=== PATIENT | male | born 1960 | race Caucasian/White ===

== ENCOUNTER 2019-02-19 12:02 | Inpatient (IN) ==
[2019-02-19] MEDS ORDERED: ONDANSETRON 4 MG/2 ML VIAL IV ONE (12:56)
[2019-02-19] MEDS ORDERED: SODIUM CHLORIDE 0.9% 1,000 ML IV SCH (13:00)
[2019-02-19] MEDS ORDERED: LACTULOSE 20 GM/30 ML UDCUP PO PRN (13:01)
[2019-02-19] MEDS ORDERED: guaiFENesin/DM ER 600-30 MG TABLET PO PRN (13:01)
[2019-02-19] MEDS ORDERED: BISACODYL 5 MG TABLET PO PRN (13:01)
[2019-02-19] MEDS ORDERED: ACETAMINOPHEN 325 MG TABLET PO PRN (13:01)
[2019-02-19] MEDS: PANTOPRAZOLE 40 MG TABLET PO SCH (13:39)
[2019-02-19] MEDS: METHOCARBAMOL 750 MG TABLET PO PRN ×2 (13:39→19:57)
[2019-02-19] MEDS: MULTIVITAMIN (CENTRUM) TABLET PO SCH (13:39)
[2019-02-19 13:46] LABS: Basophils # 0.1 10*3/uL (0.0-0.2); Eosinophils % 0.3 % (0.00-10.9); Hematocrit 30.8 VOL% (42.0-52.0); Immature Granulocytes % 0.6 %; Immature Granulocytes Absolute 0.05 #; Lymphocytes # 1.1 10*3/uL (1.4-4.0); Mean Corpuscular HGB Conc 32.5 GM/DL (32-36); Mean Platelet Volume 9.8 FL (9.6-12.0); Monocytes % 15.1 % (1.7-12.7); Platelet Count 275 T/CUMM (130-400); Red Blood Count 3.58 MC/CUMM (3.8-5.5); Red Cell Distribution Width 23.6 % (9.3-17.3); White Blood Count 8.9 T/CUMM (4-12)
[2019-02-19 13:54] LABS: INR 0.9; PT Patient Result 10.2 SECS (9.6-12.2); Partial Thromboplastin Time 25.2 SECS (20.8-36.0)
[2019-02-19] MEDS ORDERED: THIAMINE INJ 100 MG, FOLIC ACID INJ 1 MG, MULTIVITAMIN INJ 10 ML in SODIUM CHLORIDE 0.9... IV ONE (14:00)
[2019-02-19 14:08] LABS: Albumin 3.4 G/DL (3.4-5.0); Bilirubin,Total 0.6 MG/DL (0.2-1.0); Calcium 8.1 MG/DL (8.5-10.1); Osmolality,Calculated 262.4 MOS/KG (273-304); Risk Ratio 1.83; Total Protein 7.8 G/DL (6.4-8.3); VLDL CHOLESTEROL 11.2 MG/DL
[2019-02-19] MEDS ORDERED: MAGNESIUM SULF RIDER 2 GM in PREMIX 1 EACH IV PRN (14:14)
[2019-02-19 14:15] LABS: Folate 13.6 NG/ML (5.4-24.0); Thyroid Stimulating Hormone 0.926 uIU/ml (0.358-3.74)
[2019-02-19] MEDS ORDERED: INFLUENZA VIRUS VACCINE 0.5 ML SYRINGE IM ONE (15:01)
[2019-02-19] MEDS: chlordiazePOXIDE 25 MG CAPSULE PO PRN ×2 (15:15→20:36)
[2019-02-19] MEDS: PROMETHAZINE 25 MG/1 ML VIAL IM PRN (15:15)
[2019-02-19] MEDS: POTASSIUM CHLORIDE RIDER 10 MEQ in PREMIX 1 EACH IV PRN ×2 (15:16→17:13)
[2019-02-19] MEDS: NICOTINE 21 MG/24 HR PATCH TRANSDERM PRN (16:50)
[2019-02-19] MEDS: MAGNESIUM SULF RIDER 4 GM in PREMIX 1 EACH IV PRN (17:13)
[2019-02-19] MEDS: cloNIDine 0.1 MG TABLET PO PRN (18:24)
[2019-02-19 18:59] LABS: Apearance,Urine Slightly Hazy (Clear); Bilirubin,Urine Negative (Negative); Blood, Urine Negative (Negative); Glucose,Urine (UA) Negative (Negative); Hyaline Casts,Urine 27 /LPF (0-3); Ketones,Urine 5 mg/dL (Negative); Mucus,Urine Occasional /LPF (Occasional); Nitrite,Urine Negative (Negative); Protein,Urine 30 MG/DL; RBC,Urine 3 /HPF (0-4); Squamous Epithelial Cell,Urine Occasional /HPF (0-10); Urine Color Amber (Yellow); Urine Specific Gravity 1.018 (1.001-1.035); WBC,Urine 49 /HPF (0-6)
[2019-02-19] MEDS ORDERED: MAGNESIUM SULF RIDER 2 GM in PREMIX 1 EACH IV ONE (19:02)
[2019-02-19] MEDS ORDERED: POTASSIUM CHLORIDE 20 MEQ TABLET PO ONE (19:02)
[2019-02-19 19:03] LABS: Barbiturates Screen,Urine Negative (Negative); Benzodiazepines Screen,Urine Negative (Negative); Cannabinoid Screen,Urine Positive (Negative); Opiate Screen,Urine Negative (Negative); Phencyclidine Screen,Urine Negative (Negative)
[2019-02-19] MEDS: ONDANSETRON 4 MG/2 ML VIAL IV PRN (19:57)
[2019-02-19] MEDS: GABAPENTIN 300 MG CAPSULE PO SCH (20:36)
[2019-02-19] MEDS: DOCUSATE SODIUM 100 MG CAPSULE PO SCH (20:36)
[2019-02-19] MEDS: ENOXAPARIN 40 MG/0.4 ML SYRINGE SUBCUT SCH (20:36)
[2019-02-20] MEDS: ENOXAPARIN 40 MG/0.4 ML SYRINGE SUBCUT SCH ×2 (00:19→22:06)
[2019-02-20] MEDS: chlordiazePOXIDE 25 MG CAPSULE PO PRN ×3 (00:26→20:53)
[2019-02-20] MEDS: ONDANSETRON 4 MG/2 ML VIAL IV PRN ×2 (00:29→20:56)
[2019-02-20] MEDS ORDERED: HydrOXYzine PAMOATE 25 MG CAPSULE PO ONE (02:40)
[2019-02-20] MEDS: METHOCARBAMOL 750 MG TABLET PO PRN ×3 (04:03→20:53)
[2019-02-20 05:50] LABS: Basophils % 0.6 % (0.0-0.8); Eosinophils # 0.1 10*3/uL (0.0-0.87); Eosinophils % 2.1 % (0.00-10.9); Hematocrit 25.5 VOL% (42.0-52.0); Hemoglobin 8.2 GM/DL (14.0-18.0); Immature Granulocytes % 0.4 %; Immature Granulocytes Absolute 0.02 #; Lymphocytes % 20.8 % (21.2-54.2); Mean Corpuscular HGB Conc 32.2 GM/DL (32-36); Mean Corpuscular Volume 87.9 FL (87-102); Mean Platelet Volume 10.3 FL (9.6-12.0); Monocytes % 10.9 % (1.7-12.7); Neutrophils % 65.2 % (38.7-73.9); Platelet Count 212 T/CUMM (130-400); Red Cell Distribution Width 23.6 % (9.3-17.3); White Blood Count 4.9 T/CUMM (4-12)
[2019-02-20 06:08] LABS: Calcium 7.1 MG/DL (8.5-10.1); Osmolality,Calculated 274.4 MOS/KG (273-304)
[2019-02-20 06:16] LABS: Hypochromasia 2+; Platelet Estimate Normal; Target Cells 1+
[2019-02-20] MEDS: FOLIC ACID 1 MG TABLET PO SCH (08:24)
[2019-02-20] MEDS: PANTOPRAZOLE 40 MG TABLET PO SCH (08:24)
[2019-02-20] MEDS: CLOPIDOGREL 75 MG TABLET PO SCH (08:24)
[2019-02-20] MEDS: DULoxetine 30 MG CAPSULE PO SCH (08:24)
[2019-02-20] MEDS: TAMSULOSIN 0.4 MG CAPSULE PO SCH (08:24)
[2019-02-20] MEDS: MULTIVITAMIN (CENTRUM) TABLET PO SCH (08:24)
[2019-02-20] MEDS: POTASSIUM CHLORIDE 20 MEQ TABLET PO PRN ×2 (08:24→10:26)
[2019-02-20] MEDS: GABAPENTIN 300 MG CAPSULE PO SCH ×2 (08:25→20:52)
[2019-02-20] MEDS: ASPIRIN CHEW 81 MG TABLET PO SCH (08:26)
[2019-02-20] MEDS: DOCUSATE SODIUM 100 MG CAPSULE PO SCH ×2 (08:27→22:06)
[2019-02-20] MEDS ORDERED: amLODIPine 10 MG TABLET PO SCH (09:00)
[2019-02-20] MEDS: amLODIPine 5 MG TABLET PO SCH (10:07)
[2019-02-20] MEDS: PROMETHAZINE 25 MG/1 ML VIAL IM PRN (10:19)
[2019-02-20] MEDS: DEXTROSE 5% NACL 0.9% 1,000 ML IV SCH (11:42)
[2019-02-20] MEDS: cefTRIAXone 1,000 MG in SYRINGE 1 EACH IV SCH (16:13)
[2019-02-21] MEDS: HydrOXYzine PAMOATE 25 MG CAPSULE PO PRN ×3 (00:10→21:59)
[2019-02-21] MEDS: DEXTROSE 5% NACL 0.9% 1,000 ML IV SCH ×2 (01:40→20:01)
[2019-02-21] MEDS: METHOCARBAMOL 750 MG TABLET PO PRN (03:18)
[2019-02-21] MEDS: chlordiazePOXIDE 25 MG CAPSULE PO PRN ×3 (03:18→14:18)
[2019-02-21 05:24] LABS: Basophils % 0.7 % (0.0-0.8); Eosinophils # 0.1 10*3/uL (0.0-0.87); Eosinophils % 2.2 % (0.00-10.9); Hematocrit 24.1 VOL% (42.0-52.0); Hemoglobin 7.7 GM/DL (14.0-18.0); Immature Granulocytes % 0.5 %; Immature Granulocytes Absolute 0.03 #; Lymphocytes # 1.5 10*3/uL (1.4-4.0); Lymphocytes % 25.5 % (21.2-54.2); Mean Corpuscular Volume 88.9 FL (87-102); Mean Platelet Volume 11.3 FL (9.6-12.0); Monocytes % 11.7 % (1.7-12.7); Neutrophils % 59.4 % (38.7-73.9); Platelet Count 222 T/CUMM (130-400); Red Blood Count 2.71 MC/CUMM (3.8-5.5); Red Cell Distribution Width 23.2 % (9.3-17.3)
[2019-02-21 05:45] LABS: Calcium 6.9 MG/DL (8.5-10.1); Osmolality,Calculated 274.4 MOS/KG (273-304)
[2019-02-21 06:09] LABS: Anisocytosis 1+; Hypochromasia 1+; Platelet Estimate Adequate; Target Cells 1+
[2019-02-21] MEDS: NICOTINE 21 MG/24 HR PATCH TRANSDERM PRN (06:20)
[2019-02-21] MEDS ORDERED: SODIUM CHLORIDE 0.9% 1,000 ML IV PRN ×2 (07:37→10:24)
[2019-02-21 08:02] LABS: % Iron Saturation 7.5 % (18-50); Ferritin 17.6 ng/ml (26-388)
[2019-02-21] MEDS: DULoxetine 30 MG CAPSULE PO SCH (08:45)
[2019-02-21] MEDS: amLODIPine 5 MG TABLET PO SCH (08:46)
[2019-02-21] MEDS: SIMVASTATIN 10 MG TABLET PO SCH (08:46)
[2019-02-21] MEDS: POTASSIUM CHLORIDE 20 MEQ TABLET PO PRN (08:46)
[2019-02-21] MEDS: TAMSULOSIN 0.4 MG CAPSULE PO SCH (08:46)
[2019-02-21] MEDS: CLOPIDOGREL 75 MG TABLET PO SCH (08:46)
[2019-02-21] MEDS: FOLIC ACID 1 MG TABLET PO SCH (08:46)
[2019-02-21] MEDS: MULTIVITAMIN (CENTRUM) TABLET PO SCH (08:46)
[2019-02-21] MEDS: ASPIRIN CHEW 81 MG TABLET PO SCH (08:46)
[2019-02-21] MEDS: GABAPENTIN 300 MG CAPSULE PO SCH ×2 (08:46→21:59)
[2019-02-21] MEDS: DOCUSATE SODIUM 100 MG CAPSULE PO SCH ×2 (08:47→21:59)
[2019-02-21] MEDS: PANTOPRAZOLE 40 MG TABLET PO SCH (08:48)
[2019-02-21] MEDS: MAGNESIUM SULF RIDER 4 GM in PREMIX 1 EACH IV PRN (08:50)
[2019-02-21] MEDS: ONDANSETRON 4 MG/2 ML VIAL IV PRN (14:28)
[2019-02-21] MEDS: LORazepam 2 MG/1 ML VIAL IV PRN ×2 (15:55→21:59)
[2019-02-21] MEDS: cefTRIAXone 1,000 MG in SYRINGE 1 EACH IV SCH (15:57)
[2019-02-22] MEDS: DEXTROSE 5% NACL 0.9% 1,000 ML IV SCH (04:49)
[2019-02-22 04:53] LABS: Basophils % 0.5 % (0.0-0.8); Eosinophils # 0.1 10*3/uL (0.0-0.87); Eosinophils % 1.9 % (0.00-10.9); Hematocrit 24.6 VOL% (42.0-52.0); Hemoglobin 7.8 GM/DL (14.0-18.0); Immature Granulocytes % 0.5 %; Immature Granulocytes Absolute 0.03 #; Lymphocytes # 1.3 10*3/uL (1.4-4.0); Lymphocytes % 20.9 % (21.2-54.2); Mean Corpuscular HGB Conc 31.7 GM/DL (32-36); Mean Corpuscular Volume 89.8 FL (87-102); Mean Platelet Volume 10.9 FL (9.6-12.0); Monocytes % 9.8 % (1.7-12.7); Neutrophils % 66.4 % (38.7-73.9); Platelet Count 241 T/CUMM (130-400); Red Blood Count 2.74 MC/CUMM (3.8-5.5); Red Cell Distribution Width 23.2 % (9.3-17.3); White Blood Count 6.3 T/CUMM (4-12)
[2019-02-22 05:25] LABS: Calcium 7.7 MG/DL (8.5-10.1); Osmolality,Calculated 281.8 MOS/KG (273-304)
[2019-02-22 05:27] LABS: Anisocytosis 1+; Hypochromasia 1+
[2019-02-22 05:28] LABS: Platelet Estimate Adequate; Target Cells 1+
[2019-02-22] MEDS: DULoxetine 30 MG CAPSULE PO SCH (08:12)
[2019-02-22] MEDS: GABAPENTIN 300 MG CAPSULE PO SCH ×2 (08:12→21:15)
[2019-02-22] MEDS: TAMSULOSIN 0.4 MG CAPSULE PO SCH (08:12)
[2019-02-22] MEDS: chlordiazePOXIDE 25 MG CAPSULE PO PRN ×3 (08:12→21:16)
[2019-02-22] MEDS: CLOPIDOGREL 75 MG TABLET PO SCH (08:12)
[2019-02-22] MEDS: MULTIVITAMIN (CENTRUM) TABLET PO SCH (08:12)
[2019-02-22] MEDS: PANTOPRAZOLE 40 MG TABLET PO SCH (08:13)
[2019-02-22] MEDS: SIMVASTATIN 10 MG TABLET PO SCH (08:13)
[2019-02-22] MEDS: ASPIRIN CHEW 81 MG TABLET PO SCH (08:13)
[2019-02-22] MEDS: POTASSIUM CHLORIDE 20 MEQ TABLET PO PRN ×3 (08:13→21:16)
[2019-02-22] MEDS: HydrOXYzine PAMOATE 25 MG CAPSULE PO PRN ×3 (08:13→21:15)
[2019-02-22] MEDS: amLODIPine 5 MG TABLET PO SCH (08:13)
[2019-02-22] MEDS: FOLIC ACID 1 MG TABLET PO SCH (08:13)
[2019-02-22] MEDS: METHOCARBAMOL 750 MG TABLET PO PRN ×2 (08:13→15:27)
[2019-02-22] MEDS: NICOTINE 21 MG/24 HR PATCH TRANSDERM PRN (08:15)
[2019-02-22] MEDS: DOCUSATE SODIUM 100 MG CAPSULE PO SCH ×2 (08:18→21:15)
[2019-02-22] MEDS: ONDANSETRON 4 MG/2 ML VIAL IV PRN ×2 (08:18→15:28)
[2019-02-22] MEDS: THIAMINE 100 MG TABLET PO SCH (15:27)
[2019-02-22] MEDS: PROMETHAZINE 25 MG/1 ML VIAL IM PRN (17:42)
[2019-02-22] MEDS: LORazepam 2 MG/1 ML VIAL IV PRN (22:37)
[2019-02-23] MEDS: HydrOXYzine PAMOATE 25 MG CAPSULE PO PRN ×3 (01:56→15:23)
[2019-02-23] MEDS: METHOCARBAMOL 750 MG TABLET PO PRN ×2 (01:56→20:41)
[2019-02-23] MEDS: POTASSIUM CHLORIDE 20 MEQ TABLET PO PRN (01:56)
[2019-02-23] MEDS: cloNIDine 0.1 MG TABLET PO PRN ×2 (02:05→22:17)
[2019-02-23] MEDS: ONDANSETRON 4 MG/2 ML VIAL IV PRN (02:16)
[2019-02-23] MEDS: DEXTROSE 5% NACL 0.9% 1,000 ML IV SCH ×3 (02:56→20:43)
[2019-02-23 06:39] LABS: Basophils # 0.1 10*3/uL (0.0-0.2); Basophils % 0.7 % (0.0-0.8); Eosinophils # 0.1 10*3/uL (0.0-0.87); Eosinophils % 1.5 % (0.00-10.9); Hematocrit 34.1 VOL% (42.0-52.0); Hemoglobin 11.2 GM/DL (14.0-18.0); Immature Granulocytes % 0.5 %; Immature Granulocytes Absolute 0.04 #; Lymphocytes # 1.4 10*3/uL (1.4-4.0); Lymphocytes % 17.7 % (21.2-54.2); Mean Corpuscular HGB Conc 32.8 GM/DL (32-36); Mean Corpuscular Volume 89.3 FL (87-102); Mean Platelet Volume 10.3 FL (9.6-12.0); Monocytes % 10.5 % (1.7-12.7); Neutrophils % 69.1 % (38.7-73.9); Platelet Count 274 T/CUMM (130-400); Red Blood Count 3.82 MC/CUMM (3.8-5.5); Red Cell Distribution Width 20.6 % (9.3-17.3); White Blood Count 8.1 T/CUMM (4-12)
[2019-02-23 06:56] LABS: Calcium 7.8 MG/DL (8.5-10.1); Osmolality,Calculated 282.8 MOS/KG (273-304)
[2019-02-23] MEDS ORDERED: MAGNESIUM SULF RIDER 2 GM in PREMIX 1 EACH IV ONE (08:39)
[2019-02-23] MEDS: CLOPIDOGREL 75 MG TABLET PO SCH (09:09)
[2019-02-23] MEDS: THIAMINE 100 MG TABLET PO SCH (09:09)
[2019-02-23] MEDS: amLODIPine 5 MG TABLET PO SCH (09:09)
[2019-02-23] MEDS: SIMVASTATIN 10 MG TABLET PO SCH (09:09)
[2019-02-23] MEDS: ASPIRIN CHEW 81 MG TABLET PO SCH (09:09)
[2019-02-23] MEDS: PANTOPRAZOLE 40 MG TABLET PO SCH (09:09)
[2019-02-23] MEDS: DOCUSATE SODIUM 100 MG CAPSULE PO SCH ×2 (09:09→20:41)
[2019-02-23] MEDS: FOLIC ACID 1 MG TABLET PO SCH (09:09)
[2019-02-23] MEDS: GABAPENTIN 300 MG CAPSULE PO SCH ×2 (09:09→20:41)
[2019-02-23] MEDS: MULTIVITAMIN (CENTRUM) TABLET PO SCH (09:09)
[2019-02-23] MEDS: DULoxetine 30 MG CAPSULE PO SCH (09:09)
[2019-02-23] MEDS: chlordiazePOXIDE 25 MG CAPSULE PO PRN ×2 (09:17→19:10)
[2019-02-23] MEDS: TAMSULOSIN 0.4 MG CAPSULE PO SCH (09:17)
[2019-02-23] MEDS: LORazepam 2 MG/1 ML VIAL IV PRN (23:34)
[2019-02-24] MEDS: chlordiazePOXIDE 25 MG CAPSULE PO PRN (04:49)
[2019-02-24] MEDS: cloNIDine 0.1 MG TABLET PO PRN (04:59)
[2019-02-24 05:29] LABS: Basophils # 0.1 10*3/uL (0.0-0.2); Basophils % 0.7 % (0.0-0.8); Eosinophils # 0.1 10*3/uL (0.0-0.87); Eosinophils % 1.5 % (0.00-10.9); Hematocrit 31.3 VOL% (42.0-52.0); Hemoglobin 10.4 GM/DL (14.0-18.0); Immature Granulocytes % 0.4 %; Immature Granulocytes Absolute 0.03 #; Lymphocytes # 1.3 10*3/uL (1.4-4.0); Lymphocytes % 16.8 % (21.2-54.2); Mean Corpuscular HGB Conc 33.2 GM/DL (32-36); Mean Corpuscular Volume 86.9 FL (87-102); Mean Platelet Volume 10.8 FL (9.6-12.0); Monocytes % 11.7 % (1.7-12.7); Neutrophils % 68.9 % (38.7-73.9); Platelet Count 288 T/CUMM (130-400); Red Cell Distribution Width 20.1 % (9.3-17.3); White Blood Count 7.4 T/CUMM (4-12)
[2019-02-24 05:52] LABS: Calcium 8.4 MG/DL (8.5-10.1); Osmolality,Calculated 282.8 MOS/KG (273-304)
[2019-02-24 07:41] VITALS: BP 162/99
[2019-02-24] MEDS: SIMVASTATIN 10 MG TABLET PO SCH (09:13)
[2019-02-24] MEDS: GABAPENTIN 300 MG CAPSULE PO SCH (09:13)
[2019-02-24] MEDS: DULoxetine 30 MG CAPSULE PO SCH (09:13)
[2019-02-24] MEDS: TAMSULOSIN 0.4 MG CAPSULE PO SCH (09:13)
[2019-02-24] MEDS: MULTIVITAMIN (CENTRUM) TABLET PO SCH (09:13)
[2019-02-24] MEDS: PANTOPRAZOLE 40 MG TABLET PO SCH (09:13)
[2019-02-24] MEDS: ASPIRIN CHEW 81 MG TABLET PO SCH (09:13)
[2019-02-24] MEDS: CLOPIDOGREL 75 MG TABLET PO SCH (09:13)
[2019-02-24] MEDS: amLODIPine 5 MG TABLET PO SCH (09:13)
[2019-02-24] MEDS: THIAMINE 100 MG TABLET PO SCH (09:13)
[2019-02-24] MEDS: FOLIC ACID 1 MG TABLET PO SCH (09:13)
[2019-02-24] MEDS: DOCUSATE SODIUM 100 MG CAPSULE PO SCH (09:13)
[2019-02-24] MEDS: POTASSIUM CHLORIDE 20 MEQ TABLET PO PRN (10:20)
== END 2019-02-24 14:00 | disposition home or self-care (01) | DRG 772 ==
LOC: N.4E 12:48
PROVIDERS: ADMIT Internal Medicine; ATTEND Internal Medicine

== ENCOUNTER 2019-08-15 13:51 | Inpatient (IN) ==
[2019-08-15] MEDS ORDERED: THIAMINE INJ 100 MG, FOLIC ACID INJ 1 MG, MULTIVITAMIN INJ 10 ML in SODIUM CHLORIDE 0.9... IV ONE (14:30)
[2019-08-15] MEDS ORDERED: DICYCLOMINE 10 MG CAPSULE PO PRN (14:30)
[2019-08-15] MEDS ORDERED: chlordiazePOXIDE 25 MG CAPSULE PO SCH (14:30)
[2019-08-15] MEDS ORDERED: ACETAMINOPHEN 325 MG TABLET PO PRN (14:33)
[2019-08-15] MEDS ORDERED: traZODone 50 MG TABLET PO PRN (14:33)
[2019-08-15] MEDS ORDERED: hydrALAZINE 20 MG/1 ML VIAL IV PRN (14:33)
[2019-08-15] MEDS ORDERED: POLYVINYL ALCOHOL 1.4% OPH SOLN 15 ML BOTTLE BOTH EYES PRN (14:40)
[2019-08-15 14:58] LABS: Basophils # 0.1 10*3/uL (0.0-0.2); Basophils % 0.7 % (0.0-0.8); Eosinophils # 0.1 10*3/uL (0.0-0.87); Eosinophils % 0.5 % (0.00-10.9); Hematocrit 32.5 VOL% (42.0-52.0); Hemoglobin 11.1 GM/DL (14.0-18.0); Immature Granulocytes % 0.5 %; Immature Granulocytes Absolute 0.05 #; Lymphocytes # 1.2 10*3/uL (1.4-4.0); Lymphocytes % 13.6 % (21.2-54.2); Mean Corpuscular HGB Conc 34.2 GM/DL (32-36); Mean Corpuscular Volume 86.7 FL (87-102); Mean Platelet Volume 10.8 FL (9.6-12.0); Monocytes % 7.9 % (1.7-12.7); Neutrophils % 76.8 % (38.7-73.9); Platelet Count 186 T/CUMM (130-400); Red Blood Count 3.75 MC/CUMM (3.8-5.5); Red Cell Distribution Width 18.1 % (9.3-17.3); White Blood Count 9.1 T/CUMM (4-12)
[2019-08-15 15:10] LABS: INR 0.9; PT Patient Result 9.4 SECS (9.6-12.2); Partial Thromboplastin Time 26.2 SECS (20.8-36.0)
[2019-08-15] MEDS: ONDANSETRON 4 MG/2 ML VIAL IV PRN ×2 (15:18→19:37)
[2019-08-15] MEDS: NICOTINE 21 MG/24 HR PATCH TRANSDERM PRN (15:18)
[2019-08-15] MEDS: LORazepam 1 MG TABLET PO SCH ×3 (15:18→23:09)
[2019-08-15 15:21] LABS: Alanine Aminotransferase 74 U/L (16-61); Albumin 4.1 G/DL (3.4-5.0); Alkaline Phosphatase 87 U/L (45-117); Aspartate Amino Transferase 98 U/L (0-37); Blood Urea Nitrogen 19 MG/DL (7-18); Calcium 9.5 MG/DL (8.5-10.1); Estimated Glom Filtration Rate 25 ML/MIN; Glucose 83 MG/DL (74-106); Osmolality,Calculated 257.1 MOS/KG (273-304); Total Protein 7.7 G/DL (6.4-8.3)
[2019-08-15 15:29] LABS: Thyroid Stimulating Hormone 2.92 uIU/ml (0.358-3.74)
[2019-08-15] MEDS ORDERED: GLUCAGON 1 MG VIAL IM PRN (15:29)
[2019-08-15] MEDS ORDERED: DEXTROSE 50% 25 GM/50 ML VIAL IV PRN (15:29)
[2019-08-15 16:00] LABS: Folate 11.3 NG/ML (5.4-24.0)
[2019-08-15] MEDS: LORazepam 2 MG/1 ML VIAL IV PRN ×2 (17:11→21:17)
[2019-08-15] MEDS: METHOCARBAMOL 750 MG TABLET PO PRN (17:11)
[2019-08-15] MEDS: HALOPERIDOL 5 MG/ML AMP IV PRN (18:42)
[2019-08-15] MEDS: HydrOXYzine PAMOATE 25 MG CAPSULE PO PRN (19:38)
[2019-08-15] MEDS ORDERED: POTASSIUM CHLORIDE 20 MEQ/15 ML UDCUP PO ONE ×2 (20:19→20:30)
[2019-08-15] MEDS ORDERED: MAGNESIUM SULF RIDER 2 GM in PREMIX 1 EACH IV ONE (20:30)
[2019-08-15] MEDS ORDERED: tiZANidine 4 MG TABLET PO PRN (20:31)
[2019-08-15] MEDS: TAMSULOSIN 0.4 MG CAPSULE PO SCH (21:17)
[2019-08-15] MEDS: GABAPENTIN 300 MG CAPSULE PO SCH (21:17)
[2019-08-16] MEDS: LORazepam 1 MG TABLET PO SCH ×5 (04:45→20:19)
[2019-08-16 05:32] LABS: Basophils # 0.1 10*3/uL (0.0-0.2); Eosinophils # 0.2 10*3/uL (0.0-0.87); Eosinophils % 2.7 % (0.00-10.9); Hematocrit 31.2 VOL% (42.0-52.0); Hemoglobin 10.4 GM/DL (14.0-18.0); Immature Granulocytes % 0.6 %; Immature Granulocytes Absolute 0.04 #; Lymphocytes # 1.2 10*3/uL (1.4-4.0); Lymphocytes % 19.2 % (21.2-54.2); Mean Corpuscular HGB Conc 33.3 GM/DL (32-36); Mean Corpuscular Volume 89.4 FL (87-102); Mean Platelet Volume 11.2 FL (9.6-12.0); Monocytes % 8.2 % (1.7-12.7); Neutrophils % 68.3 % (38.7-73.9); Platelet Count 156 T/CUMM (130-400); Red Blood Count 3.49 MC/CUMM (3.8-5.5); Red Cell Distribution Width 18.3 % (9.3-17.3); White Blood Count 6.3 T/CUMM (4-12)
[2019-08-16 05:51] LABS: Calcium 8.6 MG/DL (8.5-10.1); Osmolality,Calculated 266.5 MOS/KG (273-304)
[2019-08-16 05:56] LABS: Risk Ratio 1.82
[2019-08-16] MEDS ORDERED: MAGNESIUM SULF RIDER 2 GM in PREMIX 1 EACH IV PRN (08:29)
[2019-08-16] MEDS ORDERED: MAGNESIUM SULF RIDER 4 GM in PREMIX 1 EACH IV PRN (08:29)
[2019-08-16] MEDS: DULoxetine 30 MG CAPSULE PO SCH (10:01)
[2019-08-16] MEDS: CLOPIDOGREL 75 MG TABLET PO SCH (10:01)
[2019-08-16] MEDS: ASPIRIN EC 81 MG TABLET PO SCH (10:01)
[2019-08-16] MEDS: TAMSULOSIN 0.4 MG CAPSULE PO SCH ×2 (10:01→20:19)
[2019-08-16] MEDS: SIMVASTATIN 10 MG TABLET PO SCH (10:01)
[2019-08-16] MEDS: GABAPENTIN 300 MG CAPSULE PO SCH ×2 (10:01→20:19)
[2019-08-16] MEDS: THIAMINE 100 MG TABLET PO SCH (10:01)
[2019-08-16] MEDS: POTASSIUM CHLORIDE 20 MEQ TABLET PO PRN ×4 (10:01→17:56)
[2019-08-16] MEDS: MULTIVITAMIN (CENTRUM) TABLET PO SCH (10:01)
[2019-08-16] MEDS: FOLIC ACID 1 MG TABLET PO SCH (10:01)
[2019-08-16] MEDS: SODIUM CHLORIDE 0.9% 1,000 ML IV SCH ×2 (10:02→15:04)
[2019-08-16] MEDS: PANTOPRAZOLE 40 MG TABLET PO SCH (10:06)
[2019-08-16 11:01] LABS: Hepatitis B Core IgM Quant < 0.05 Index; Hepatitis B Surface Ag Quant < 0.10 Index; Hepatitis B Surface Ag Result Negative (Negative); Hepatitis C Virus Ab Quant < 0.02 Index; Hepatitis C Virus Ab Result Negative (Negative)
[2019-08-16] MEDS: NICOTINE 21 MG/24 HR PATCH TRANSDERM PRN (17:21)
[2019-08-16] MEDS: HydrOXYzine PAMOATE 25 MG CAPSULE PO PRN (19:25)
[2019-08-16] MEDS: HALOPERIDOL 5 MG/ML AMP IV PRN (21:07)
[2019-08-16] MEDS: LORazepam 2 MG/1 ML VIAL IV PRN (22:42)
[2019-08-17] MEDS: LORazepam 1 MG TABLET PO SCH ×2 (03:13→09:06)
[2019-08-17] MEDS: LORazepam 2 MG/1 ML VIAL IV PRN ×3 (04:08→15:34)
[2019-08-17] MEDS: ONDANSETRON 4 MG/2 ML VIAL IV PRN ×3 (05:09→19:56)
[2019-08-17 05:31] LABS: Basophils % 0.7 % (0.0-0.8); Eosinophils # 0.2 10*3/uL (0.0-0.87); Eosinophils % 3.1 % (0.00-10.9); Hematocrit 28.2 VOL% (42.0-52.0); Hemoglobin 8.9 GM/DL (14.0-18.0); Immature Granulocytes % 0.4 %; Immature Granulocytes Absolute 0.02 #; Lymphocytes # 1.2 10*3/uL (1.4-4.0); Lymphocytes % 22.6 % (21.2-54.2); Mean Corpuscular HGB Conc 31.6 GM/DL (32-36); Mean Corpuscular Volume 91.9 FL (87-102); Mean Platelet Volume 11.5 FL (9.6-12.0); Monocytes % 6.7 % (1.7-12.7); Neutrophils % 66.5 % (38.7-73.9); Platelet Count 126 T/CUMM (130-400); Red Blood Count 3.07 MC/CUMM (3.8-5.5); Red Cell Distribution Width 18.1 % (9.3-17.3); White Blood Count 5.5 T/CUMM (4-12)
[2019-08-17 05:43] LABS: Calcium 8.3 MG/DL (8.5-10.1); Osmolality,Calculated 269.1 MOS/KG (273-304)
[2019-08-17 07:25] LABS: Apearance,Urine CLEAR (Clear); Bilirubin,Urine Negative (Negative); Blood, Urine Negative (Negative); Glucose,Urine (UA) Negative (Negative); Ketones,Urine Negative (Negative); Nitrite,Urine Negative (Negative); Protein,Urine Negative; RBC,Urine <1 /HPF (0-4); Urine Color Straw (Yellow); Urine Specific Gravity 1.004 (1.001-1.035); Urine Urobilinogen < 2.0 EU/DL (0.2-1.0); WBC,Urine 1 /HPF (0-6)
[2019-08-17 08:04] LABS: Barbiturates Screen,Urine Negative (Negative); Benzodiazepines Screen,Urine Negative (Negative); Cannabinoid Screen,Urine Positive (Negative); Opiate Screen,Urine Negative (Negative); Phencyclidine Screen,Urine Negative (Negative)
[2019-08-17] MEDS: PANTOPRAZOLE 40 MG TABLET PO SCH (09:05)
[2019-08-17] MEDS: HALOPERIDOL 5 MG/ML AMP IV PRN ×2 (09:05→22:16)
[2019-08-17] MEDS: DULoxetine 30 MG CAPSULE PO SCH (09:05)
[2019-08-17] MEDS: MULTIVITAMIN (CENTRUM) TABLET PO SCH (09:06)
[2019-08-17] MEDS: GABAPENTIN 300 MG CAPSULE PO SCH ×2 (09:06→20:47)
[2019-08-17] MEDS: CLOPIDOGREL 75 MG TABLET PO SCH (09:06)
[2019-08-17] MEDS: FOLIC ACID 1 MG TABLET PO SCH (09:06)
[2019-08-17] MEDS: SODIUM CHLORIDE 0.9% 1,000 ML IV SCH ×2 (09:06→19:59)
[2019-08-17] MEDS: SIMVASTATIN 10 MG TABLET PO SCH (09:06)
[2019-08-17] MEDS: THIAMINE 100 MG TABLET PO SCH (09:06)
[2019-08-17] MEDS: TAMSULOSIN 0.4 MG CAPSULE PO SCH ×2 (09:06→20:47)
[2019-08-17] MEDS: ASPIRIN EC 81 MG TABLET PO SCH (09:07)
[2019-08-17] MEDS ORDERED: chlordiazePOXIDE 25 MG CAPSULE PO PRN (09:56)
[2019-08-17] MEDS: chlordiazePOXIDE 25 MG CAPSULE PO SCH ×2 (15:34→20:47)
[2019-08-17] MEDS: amLODIPine 5 MG TABLET PO SCH (15:34)
[2019-08-17] MEDS: HydrOXYzine PAMOATE 25 MG CAPSULE PO PRN (19:56)
[2019-08-18] MEDS: LORazepam 2 MG/1 ML VIAL IV PRN ×3 (00:51→20:50)
[2019-08-18] MEDS: chlordiazePOXIDE 25 MG CAPSULE PO SCH ×4 (03:10→23:14)
[2019-08-18] MEDS: SODIUM CHLORIDE 0.9% 1,000 ML IV SCH ×3 (04:26→15:19)
[2019-08-18 04:49] LABS: Basophils % 0.8 % (0.0-0.8); Eosinophils # 0.2 10*3/uL (0.0-0.87); Eosinophils % 3.5 % (0.00-10.9); Hematocrit 27.4 VOL% (42.0-52.0); Hemoglobin 8.7 GM/DL (14.0-18.0); Immature Granulocytes % 0.6 %; Immature Granulocytes Absolute 0.03 #; Lymphocytes # 1.1 10*3/uL (1.4-4.0); Mean Corpuscular HGB Conc 31.8 GM/DL (32-36); Mean Corpuscular Volume 92.3 FL (87-102); Mean Platelet Volume 11.2 FL (9.6-12.0); Monocytes % 9.8 % (1.7-12.7); Neutrophils % 62.3 % (38.7-73.9); Platelet Count 139 T/CUMM (130-400); Red Blood Count 2.97 MC/CUMM (3.8-5.5); Red Cell Distribution Width 18.2 % (9.3-17.3); White Blood Count 4.9 T/CUMM (4-12)
[2019-08-18 05:05] LABS: Calcium 8.2 MG/DL (8.5-10.1); Osmolality,Calculated 275.7 MOS/KG (273-304)
[2019-08-18] MEDS: ONDANSETRON 4 MG/2 ML VIAL IV PRN ×2 (08:43→18:43)
[2019-08-18] MEDS: amLODIPine 5 MG TABLET PO SCH (08:44)
[2019-08-18] MEDS: METHOCARBAMOL 750 MG TABLET PO PRN (08:44)
[2019-08-18] MEDS: DULoxetine 30 MG CAPSULE PO SCH (08:44)
[2019-08-18] MEDS: CLOPIDOGREL 75 MG TABLET PO SCH (08:44)
[2019-08-18] MEDS: MULTIVITAMIN (CENTRUM) TABLET PO SCH (08:45)
[2019-08-18] MEDS: SIMVASTATIN 10 MG TABLET PO SCH (08:45)
[2019-08-18] MEDS: PANTOPRAZOLE 40 MG TABLET PO SCH (08:45)
[2019-08-18] MEDS: FOLIC ACID 1 MG TABLET PO SCH (08:45)
[2019-08-18] MEDS: GABAPENTIN 300 MG CAPSULE PO SCH ×2 (08:45→20:51)
[2019-08-18] MEDS: ASPIRIN EC 81 MG TABLET PO SCH (08:45)
[2019-08-18] MEDS: TAMSULOSIN 0.4 MG CAPSULE PO SCH ×2 (08:45→20:51)
[2019-08-18] MEDS: THIAMINE 100 MG TABLET PO SCH (08:45)
[2019-08-18] MEDS: POTASSIUM CHLORIDE 20 MEQ TABLET PO PRN ×3 (08:45→15:25)
[2019-08-18] MEDS: NICOTINE 21 MG/24 HR PATCH TRANSDERM PRN (10:39)
[2019-08-18] MEDS: HydrOXYzine PAMOATE 25 MG CAPSULE PO PRN (15:26)
[2019-08-19] MEDS: chlordiazePOXIDE 25 MG CAPSULE PO SCH (06:04)
[2019-08-19 09:09] LABS: Alanine Aminotransferase 86 U/L (16-61); Albumin 2.8 G/DL (3.4-5.0); Alkaline Phosphatase 66 U/L (45-117); Aspartate Amino Transferase 95 U/L (0-37); Bilirubin,Total < 0.39 MG/DL (0.2-1.0); Blood Urea Nitrogen 8 MG/DL (7-18); Calcium 8.7 MG/DL (8.5-10.1); Estimated Glom Filtration Rate 87 ML/MIN; Glucose 132 MG/DL (74-106); Osmolality,Calculated 272.8 MOS/KG (273-304); Total Protein 5.9 G/DL (6.4-8.3)
[2019-08-19] MEDS: FOLIC ACID 1 MG TABLET PO SCH (09:36)
[2019-08-19] MEDS: TAMSULOSIN 0.4 MG CAPSULE PO SCH (09:36)
[2019-08-19] MEDS: GABAPENTIN 300 MG CAPSULE PO SCH (09:37)
[2019-08-19] MEDS: CLOPIDOGREL 75 MG TABLET PO SCH (09:37)
[2019-08-19] MEDS: DULoxetine 30 MG CAPSULE PO SCH (09:37)
[2019-08-19] MEDS: PANTOPRAZOLE 40 MG TABLET PO SCH (09:37)
[2019-08-19] MEDS: SIMVASTATIN 10 MG TABLET PO SCH (09:37)
[2019-08-19] MEDS: ASPIRIN EC 81 MG TABLET PO SCH (09:37)
[2019-08-19] MEDS: MULTIVITAMIN (CENTRUM) TABLET PO SCH (09:38)
[2019-08-19] MEDS: THIAMINE 100 MG TABLET PO SCH (09:38)
[2019-08-19] MEDS: amLODIPine 5 MG TABLET PO SCH (09:38)
[2019-08-19 11:13] VITALS: BP 100/67
== END 2019-08-19 12:27 | disposition home or self-care (01) | DRG 772 ==
LOC: SUATTDRO 13:55 → N.4E 13:55
PROVIDERS: ADMIT Internal Medicine; ATTEND Family Medicine